=== PATIENT | male | born 1950 | race Caucasian/White ===

== ENCOUNTER 2021-04-25 14:25 | Emergency (ER) | payer OTHER ==
[~2021-04-25] VITALS: Ht 182.9 cm; Wt 119.8 kg
[2021-04-25 15:43] VITALS: BP 126/87
== END 2021-04-25 15:43 | disposition admitted as inpatient to this hospital (09) ==
LOC: ER 14:25
DX: F98.9 Unspecified behavioral and emotional disorders with onset usually occurring in childhood and adolescence (principal); Z20.822 Contact with and (suspected) exposure to COVID-19; R41.0 Disorientation, unspecified; Z88.0 Allergy status to penicillin

== ENCOUNTER 2021-04-25 15:51 | Inpatient (IN) | payer OTHER ==
[~2021-04-25] VITALS: Ht 175.3 cm; Wt 107.9 kg
[2021-04-25 17:00] VITALS: BP 121/79
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
[2021-04-25 20:00] VITALS: BP 109/70
[2021-04-25 20:55] VITALS: BP 109/70
[2021-04-25 21:00] VITALS: BP 109/70
--- NOTE | 2021-04-26 02:36 | NUR ---
PATINET CARE WAS RESUMED AT 1900. HE WAS RESTING CALM IN BED. ALERT AND ABLE TO VERBALIZE NEEDS.LUNGS ARE CLEAR BS ACTIVE X4 QUAD. HE IS INCONTINET OF BOWEL AND BLADDER. HE HAS A YELLOW TOP WAND SOCKS ON . LUNGS ARE CLEAR BS ACTIVE X4 QUAD. HE DENIES SI/AVH AND HI. COMPLAINED OF GENERAL BODY ACHE AND PRN TYLENOL GIVEN WUTH SOME GOOD EFFECT. MEDS WERE TAKEN WHOLE AND NO ISSUES OR BEHAVIOR NOTED ON THIS SHIFT. CAONTINUE CARE AND CONTINUE CARE
[2021-04-26 05:48] LABS: CHOLESTEROL 138 mg/dL (<200); HDL CHOLESTEROL 19 mg/dL (>40); LDL CHOLESTEROL 94 mg/dL (<100); SERUM ASSESSMENT Clear; TC:HDL 7.3 Ratio (Not establshd); TRIGLYCERIDE 125 mg/dL (<150); VLDL 25 mg/dL (<40)
--- NOTE | 2021-04-26 09:33 | NUR ---
Alert and orientated to person and time but not to place. Denies SI/HI. Ambulates with regular, steady gait. Breath sounds clear. Reg HR auscultated. Color pink with brisk capillary refill and palpable peripheral pulses. No edema noted. Yellow urine per toilet. Hesistancy with periodic flow noted. States he had BM yesterday. Active bowel sounds over soft, rounded abdomen. Shaniko, drying rash per upper R arm and R inguinal fold. Currently participating in group without s/o distress.
[2021-04-26 10:55] VITALS: BP 113/72
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
[2021-04-26 16:10] VITALS: BP 123/74
[2021-04-26 19:37] VITALS: BP 108/63
[2021-04-26 20:50] VITALS: BP 108/63
[2021-04-26 21:00] VITALS: BP 108/63
[2021-04-26 22:06] LABS: GLYCOHEMOGLOBIN (HGB A1C) 6.1 % (4.8-5.6)
--- NOTE | 2021-04-27 04:12 | NUR ---
PT CARE WAS RESUMD AT 1900. HE WAS IN HIS ROOM COVERED WITH BLANKET. HIS IS ALERT AND ORINETED. ABLE TO VERBALIZE NEEDS. LUNGS ARE CLEAR, BS ACTIVE X 4 QUAD. HE DENIES PAINS/SI/AVH/ HI. Q 12 MINUES CHECK IS ONGOING.N BEHAVOUR NOTED AT THIS TIME. HE TOOK HIS MEDS WHOLE. BED IS LOW, LOCKED AND ALARMED.CONTIUNE CARE AND MONITOR
[2021-04-27 09:06] VITALS: BP 100/77
--- NOTE | 2021-04-27 12:38 | NUR ---
Patient care asumed by 0700, patient alert and oriented x4, patient calm and cooparetive, eat 100% of his meals. Assessment were done with no problem found, lungs clear, vital/signs normal.Patient takes medication whole, PRN given for pain. Patient denies SI,HI and AVH. will continue to monitor patient.
[2021-04-27 19:35] VITALS: BP 113/77
[2021-04-27 19:59] VITALS: BP 113/77
--- NOTE | 2021-04-27 23:25 | NUR ---
PATINET CARE WAS RESUMED AT 1900. HE IS ALERT AND ORINETED WITH SOME CONFUSSION. HE IS HEARD OF HEARING. HE DENIES PAINS, SI/AVH/HI. HE TOOK HIS MEDS WHOLE. BS ACTIVE X4 QUADS ABD IS SOFT NONE TENDER. ABLE TO VERBALIZE NEEDS. HE AMBULATES AND NO CONCERN NOTED AT THIS TIME. LUNGS ARE CLEAR. PT IS IN BED NOW, BED IS LOW, LOCKED AND ALARMED. Q 12 MINUTES CHECK IS ONGOING. CONTINUE CARE AND MONITOR.
[2021-04-28 09:22] VITALS: BP 118/78
--- NOTE | 2021-04-28 12:35 | NUR ---
Alert and orientated X4. Denies SI/HI. States he wants to go home today but was told he had to stay a few more days. Ambulates with regular, steady gait. Breath sounds clear. Reg HR auscultated. Color pink with brisk capillary refill and palpable peripheral pulses. Minimal edema in lower extremities. Independent with voiding. Active bowel sounds over soft, rounded abdomen. Yellow urine per toilet and brief. States he had BM last night. Currently eating lunch without s/o distress.
--- NOTE | 2021-04-28 18:11 | NUR ---
Emailed a requested for a medicaid screening to Demi Smith.
--- NOTE | 2021-04-28 18:12 | NUR ---
CESAR and Dr. Win participated in a family meeting with Joleen (Pt's ), Castillo ( Pt's son) , and Patti ( Pt's daughter in law). During this meeting Pt's diagnosis and medications were discussed. A recommendation for memory care was given to the family. Pt later joined the meeting. The recommendation and diagnosis was explained to the Pt. Pt did not seem to understand the information given. Pt became upset about not returning home Pt started to raise his voice. Pt was escorted out of the room. SW was able to speak with the Pt outside of the meeting. Pt's voice was elevated. Pt asked " Why can't I go home". CESAR explained to the Pt the recommedation. Pt began to blame his stating " She just won't let me go home, It's my house too". CESAR again explained the recommendation. CESAR offered to have Pt go into the dinning area to sit and calm down. Pt walked to the dining area and began watching TV. CESAR returned to the meeting. The family had no other questions or concerns. CESAR did inform Joleen that [employer] will be calling concerning the medicaid application. Also provided medicare.gov website to the family to facilitate a search for LTC facilities. CESAR will continue to follow.
[2021-04-28 19:41] VITALS: BP 118/76
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
[2021-04-29 03:16] VITALS: BP 118/76
[2021-04-29 08:40] VITALS: BP 125/84
--- NOTE | 2021-04-29 10:58 | NUR ---
Alert and orientated X4. Denies SI/HI. Wants to go home. Breath sounds clear. Reg HR auscultated. Color pink with brisk capillary refill and palpable peripheral pulses. Minimal edema in feet. Independent with voiding. Active bowel sounds over soft rounded abdomen. States he had BM yesterday. Ambulating in unit without s/o distress. Spoke with Dr. Rutledge, now calling asking to go home.
[2021-04-29 19:45] VITALS: BP 110/71
[2021-04-29 21:32] VITALS: BP 110/71
--- NOTE | 2021-04-29 22:16 | NUR ---
4272 RESUMMED CARE FROM DAY SHIFT THIS PM, PATIENT LYING IN BED QUIETLY. PATIENT ALERT ORIENTED TIMES 4 PATIENT DENIES SI/HI/AH/VH AT PRESENT. PATIENTS ABDOMEN SOFT BOWEL SOUNDS PRESENT PATIENTS LUNGS CLEAR. PATIENT CALM COOPERATIVE TOOK MEDICATION WITHOUT INCIDENCE. WILL CONTINUE TO MONITOR PATIENT FOR SAFETY AND BEHAVIORS.
[2021-04-30 08:42] VITALS: BP 118/81
--- NOTE | 2021-04-30 16:28 | NUR ---
VISIBLE IN DAYROOM DURING UNSTRUCTURED TIME-SITTING ON COUCH AND WATCHING TV. NO NOTED INTERACTION WITH PEER GROUP- OFFERS VERY BRIEF VAGUE RESPONSES DURING AM ASSESSMENT-WHEN ASKED WHY HE WAS HERE SATES "I DON'T EVEN KNOW"
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
[2021-04-30 19:36] VITALS: BP 129/83
[2021-04-30 20:30] VITALS: BP 129/83
--- NOTE | 2021-05-01 02:52 | NUR ---
[facility] HE IS ALERT AND ORIENTED. ABLE TO VEERBALIZE NEEDS. LUNGS ARE CLEAR BS ACTIVE X4 QUADS. HE AMBULATES AND NO CONCERN NOTED AT THIS TIME. TOOK HIS MEDS WHOLE, HE IS CALM AND CO-OPERATIVE WITH CARE. HE DENIES SI/AVH/HI. COMPLAINED OF PAINS TO HIS ARM AND SHOULDER AND VOLTERAN GEL APPLIED PER ORDER.BED IS LOW, LOCKED ANS PT YELLOW SOCK AND TOP ON. Q 12 MINUTES CHECKS ARE ONGOING.
[2021-05-01 09:09] VITALS: BP 118/75
[2021-05-01 10:09] VITALS: BP 118/75
--- NOTE | 2021-05-01 11:39 | NUR ---
1139 RESUMMED CARE FROM OVERNIGHT SHIFT THIS AM, PATIENT IN DAY ROOM QUIET. PATIENT DID NOT WANT TO EAT BREAKFAST THIS AM STATES HE IS NOT A BREAKFAST PERSON. PATIENT ALERT ORIENTED TIMES 4 PATIENT DENIES SI/HI/AH/VH AT PRESENT. PATIENTS ABDOMEN SOFT BOWEL SOUNDS PRESENTS PATIENTS LUNGS CLEAR. PATIENT PARTICIPATES IN GROUPS PATIENT HAS NOT DISPLAYED ANY BEHAVIORS AT PRESENT. WILL CONTINUE TO MONITOR PATIENT FOR SAFETY AND BEHAVIORS.
[2021-05-01 20:01] VITALS: BP 105/64
[2021-05-01 20:40] VITALS: BP 105/64
--- NOTE | 2021-05-02 02:18 | NUR ---
PATIENT CARE WAS RESUMED AT 1900. HE IS ABLE TO VERBALIZE HIS NEEDS. LUNGS ARE CLEARBS ACTIVE X4 QUADS. LUNGS ARE CLEAR ABD IS SOFT FLAT AND AND NONE TENDER. DUE MEDS WERE GIVEN . SHE HE DENIES SI/AVH/I. BED IS LOW , ALARMED AND LOCKED. HE C/O PAINS TO HIS RIGHT ARM AND PRN PAIN MEDS WERE GIVEN WITH SOME GOOD EFFECT. HE IS ON Q12 MINUTES CHECKS FOR SAFETY AND FALL PREACAUTIONS.
[2021-05-02 09:34] VITALS: BP 126/85
--- NOTE | 2021-05-02 17:24 | NUR ---
SW faxed a referral to [facility] per family request
[2021-05-02 20:18] VITALS: BP 104/69
[2021-05-02 23:44] VITALS: BP 104/69
--- NOTE | 2021-05-03 03:15 | NUR ---
[facility] WAS RESUMED AT 1900.HE WAS IN THE DINING ROOM . CALM AND CO-OPERATIVE WITH CARE.HE DENIES /SI/AVH/HI . HE TOOK HIS MEDS WHOLE, HE AMBULATES AND CONTINENT OF BOWEL AND BLADDER.BED IS LOW, LOCKED AND ALARMED. PATIENT COMPLAINED OF PAINS TO HIS RIGHT ARM AND CREAM IS APPLIED PER ORDER WITH SOME GOOD EFFECT. BS ACTIVE, LUNGS ARE CLEAR ABD SOFT NONE TENDER.CONTINUE CARE AND MONITOR.
[2021-05-03 08:58] VITALS: BP 114/79
--- NOTE | 2021-05-03 09:45 | NUR ---
CESAR recieved a call from [facility]. They have denied the Pt stating they are unable to sincere Pt's behaviors in their facility.
--- NOTE | 2021-05-03 10:43 | NUR ---
Nutrition followup: pt continues on H unit with unspecified dementia, behavioral disturbance dx. Pt eating 75-100% of meals but frequently refuses breakfast. Voiced he is not a breakfast eater. At times will just have juice and a cookie. No other food preferences voiced. Pt is drinking some ensure max which RD reinforced. Wounds healing. Weight discrepancies of 250# on 04/25 239# on 04/29. Recommend re-weigh for accuracy. Low nutrition risk.
--- NOTE | 2021-05-03 12:18 | NUR ---
RT Progress Note- Sai, who likes to go by "Aleksandar", has been present in the milieu and recreation therapy groups much of the time since his admission. Sai is easy going and compliant with requests for his participation. He has not displayed any agitation or aggression during group interactions. He enjoys talking about his days playing baseball and living in [facility]. Sai has required redirection and refocusing a few times as he becomes set on locating the doctor to request discharge. He is easily redirected from this with use of conversation about topics he enjoys.
--- NOTE | 2021-05-03 14:12 | NUR ---
0700 ASSUMED CARE OF PATIENT, PATIENT IN DAYROOM AT THAT TIME. AMB WITH STEADY GAIT. DENIES SI/HI. PATIENT CALM AND COOPERATIVE. MEDICATION TAKEN WHOLE WITHOUT DIFFICULTY. SITS QUIETLY WATCHING TV. VOICED CONCERN REGARDING DC. PATIENT STATES "IM READY TO GO HOME, WHEN MY SON ARRIVES I WILL LEAVE WITH HIM". PATIENT SHOWERED TODAY. LS CLEAR, BS ACTIVE, NO C/O PAIN. DENIES NEEDS AT THIS TIME
--- NOTE | 2021-05-03 15:10 | NUR ---
CESAR faxed referral to the following: [facility]
[2021-05-03 19:38] VITALS: BP 110/76
[2021-05-03 20:20] VITALS: BP 110/76
--- NOTE | 2021-05-04 02:07 | NUR ---
PATINET CARE WAS RESUMED AT 1900. HE IS ALERT AD ORIENTED. HE AMBUALATE. ABLE TO VERBALIZE NEEDS.HE TOOK HIS MEDS WHOLE AND HE DENIES PPSI/AVH/HI. C/O PAINS TO HIS RIGHT ARM AND VOLTERAM GEL IS APPLIED WITH GOOD EFFECT. LUNGS ARE CLEAR BS ACTIVE X4 QUADS CONTINUE CARE
[2021-05-04 08:53] VITALS: BP 116/82
--- NOTE | 2021-05-04 10:09 | NUR ---
ASSUMED CARE OF PATIENT 0700, IN BED BUT CAME OUT BREAKAST, ALERT AND ORIENTED X4, CALM AND COOPERATIVE, LUNGS CLEAR,BS ACTIVE X4, LBM 05/04/21, PATIENT ATTENDS GROUPS, TAKES MEDICATION WHOLE, DENIES HI/SI/AVH. WILL CONTINUE TO MONITOR PATIENT.
[2021-05-04 19:41] VITALS: BP 109/74
--- NOTE | 2021-05-05 01:26 | NUR ---
ASSUMED CARE OF PATIENT AT 1900. PATIENT SITTING OUT IN DAY AREA AT BEGINNING OF SHIFT, WATCHING SPORTS PROGRAMING, RELAXED POSTURE. C/O RIGHT SHOULDER/ARM PAIN, CHRONIC OVER LAST 7 WEEKS. GIVEN PRN TYLENOL WELL SCHEDULED DICLOFENAC GEL, EFFECTIVE. PATIENT IS PLEASANT, TAKES MEDS WHOLE WITHOUT DIFFICULTY. AMBULATES WITH STEADY GAIT. WILL MONITOR.
[2021-05-05 09:03] VITALS: BP 119/54
--- NOTE | 2021-05-05 11:19 | NUR ---
CALM AND COOPERATIVE SO FAR TODAY-COMPLIENT WITH TAKING AM MEDS AND ATTENDING SCHEDULED GROUPS. CONTINUES TO REPORT RIGHT SHOULDER PAIN DESCRIBES IT "NOT TO BAD-I'VE HAD IT FOR A LONG TIME"GAIT STEADY. ORIENTED TO PERSON AND PLACE-NO TO DATE.
--- NOTE | 2021-05-05 17:36 | NUR ---
SW sent referrals to the following: [facility]- has accepted [facility] Declined due to not having memory care
[2021-05-05 21:01] VITALS: BP 107/70
--- NOTE | 2021-05-05 23:50 | NUR ---
RESUMED PATIENT CARE THIS EVENING. PATIENT A&O TO PERSON, PLACE, AND SITUATION. PLEASANT AND COOPERATIVE. TOOK MEDS WHOLE WITHOUT DIFFICULTY. ABLE TO MAKE NEEDS KNOWN. NO AGGRESSIVE OR ASSAULTIVE BEHAVIORS NOTED.
[2021-05-06 09:25] VITALS: BP 114/79
[2021-05-06 09:31] VITALS: BP 114/79
--- NOTE | 2021-05-06 10:30 | NUR ---
1030 RESUMMED CARE FROM OVERNIGHT SHIFT THIS AM, PATIENT SITTING IN DAY ROOM QUIET. PATIENT ALERT ORIENTED TIMES 4 PATIENT DENIES SI/HI/AH/VH AT PRESENT. PATIENTS ABDOMEN SOFT BOWEL SOUNDS PRESENT PATIENTS LUNGS CLEAR. PATIENT DID NOT EAT HIS BREAKFAST THIS AM HE STATES HE DOES NOT EAT BREAKFAST. PATIENT STATES HE WANTS TO GO HOME; PATIENT HAS NOT DISPLAYED ANY BEHAVIORS. WILL CONTINUE TO MONITOR PATIENT FOR SAFEETY AND BEHAVIORS.
[2021-05-06 20:32] VITALS: BP 126/80
[2021-05-06 21:12] VITALS: BP 126/80
--- NOTE | 2021-05-07 02:58 | NUR ---
05/06/21- Pt was sitting in day room watching baseball, the [employer] game. Alert/oriented x 3, HRR, LCTAB, c/o pain in right shoulder, applied cream, Pt decided to go to bed after the game. Pt has slept pretty well throughout the shift. Will continue to [facility].
[2021-05-07 08:00] VITALS: BP 123/71
--- NOTE | 2021-05-07 10:33 | NUR ---
PT IS SITTING IN DAY ROOM CONVERSING WITH OTHER PT ABOUT BASKETBALL GAME ON TV. PT IS CALM AND NOT DISPLAYING ANY BEHAVIORS. PT TOOK MEDS WHOLE WITH WATER. WILL CONTINUE TO OBSERVE PT.
[2021-05-07 19:30] VITALS: BP 103/55
[2021-05-07 20:16] VITALS: BP 103/55
--- NOTE | 2021-05-07 22:43 | NUR ---
Assumed care on 05/07/21 @ 1900, in the day room watching sports on TV, continued watching until TV turned off @ 2200. Cooperative with assessment, HRRR, Lungs CTA, ABD n x 4Q over a soft, round abdomen. Compliant with medication, taking meds whole with water. Tylenol and voltaren gel provided for 7/10 pain in right shoulder. Retired to bed @ HS, will continue to monitor for safety and comfort as per unit protocol.
[2021-05-08 08:44] VITALS: BP 104/71
--- NOTE | 2021-05-08 13:58 | NUR ---
CESAR spoke with Sabrina from [facility] concerning discharge. Sabrina stated they would be able to accept the Pt on Saturday. Betsy asked that transportation be set up for the Pt. CESAR contacted the Pt's /DPOA, Rosalina, concerning the Pt being accepted at [facility] and discharge for Saturday. Rosalina is in agreement with the plan. Pt will be d/c 05/09/2021 @1100. [employer] will provide transportation, tracking # [id number].
--- NOTE | 2021-05-08 18:36 | NUR ---
Assumed pt care at 0700. pt was in his room awake. ASSESSMENTS COMPLETED, VSS. alert and oriented x4. lungs clear on auscultation. Denies si/hi, C/O PAIN. pT REFUSED TYLENOL. DICLOFENAC was administered to right shoulder. Pt took his meds whole, No difficulty noted. Pt ambulates with a steady gait. No sign of acute distress noted upon assessments. Pt was worried he won't go home after D/C. No bowel movement noted this shift. AT this time pt is in the day room. Will continue to monitor.
[2021-05-08 19:30] VITALS: BP 117/72
[2021-05-08 19:49] VITALS: BP 117/72
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
[2021-05-09] MEDS ORDERED: FLOMAX0.4 MG PO (08:23)
[2021-05-09] MEDS ORDERED: DICLOFENAC SOD100 G1 TOP (08:23)
[2021-05-09] MEDS ORDERED: IBUPROFEN 400400 M2 PO (08:23)
[2021-05-09] MEDS ORDERED: DEPAKOTE500 MG PO (08:23)
[2021-05-09] MEDS ORDERED: CLOTRIMAZOLE-BE15 GM TOP (08:24)
[2021-05-09] MEDS ORDERED: NAMENDA 5 MG TAB5 M1 PO (08:24)
[2021-05-09] MEDS ORDERED: MAG-AL PLUS SUS30 ML PO (08:25)
[2021-05-09] MEDS ORDERED: B-12500 MCG PO (08:25)
[2021-05-09] MEDS ORDERED: MILK OF MA2400 MG/11 PO (08:25)
[2021-05-09 09:22] VITALS: BP 121/79
--- NOTE | 2021-05-09 10:04 | NUR ---
Discharge document was faxed to [facility]. A copy for the fax cover sheet and confirmation page was placed in the Pt's chart.
--- NOTE | 2021-05-09 11:28 | NUR ---
Alert and orientated X4. States he wants to go home instead of facility. Denies SI/HI. Ambulating with regular, steady gait. Breath sounds clear. Reg HR auscultated. Color pink with brisk capillary refill and palpable peripheral pulses. Independent with voiding. Active bowel sounds over soft, rounded abdomen. States R shoulder painful, rates 7/10. States pain improved after application of diclofenac. Called and DPOA Mulu Ha, consents to transfer. States she will meet him at facility. Called report to [facility] and given to Yelena Escobedo LPN, no questions. Pt discharged per [facility] with belongings per wheelchair.
== END 2021-05-09 11:17 | DRG 57 ==
LOC: SBH
PROVIDERS: ADMIT Psychiatry & Neurology Psychiatry; ATTEND Psychiatry & Neurology Psychiatry
DX: G30.9 Alzheimer's disease, unspecified (principal); F02.81 Dementia in other diseases classified elsewhere, unspecified severity, with behavioral disturbance; M19.032 Primary osteoarthritis, left wrist; M19.031 Primary osteoarthritis, right wrist; M19.042 Primary osteoarthritis, left hand; M19.041 Primary osteoarthritis, right hand; M81.0 Age-related osteoporosis without current pathological fracture; N40.0 Benign prostatic hyperplasia without lower urinary tract symptoms; T14.8XXA Other injury of unspecified body region, initial encounter; T22.00XA Burn of unspecified degree of shoulder and upper limb, except wrist and hand, unspecified site, initial encounter; T21.02XA Burn of unspecified degree of abdominal wall, initial encounter; X08.8XXA Exposure to other specified smoke, fire and flames, initial encounter; Z79.899 Other long term (current) drug therapy; Z80.0 Family history of malignant neoplasm of digestive organs; Z88.0 Allergy status to penicillin; Y93.89 Activity, other specified; Y92.89 Other specified places as the place of occurrence of the external cause; Y99.8 Other external cause status
CPT/HCPCS: 10880